=== PATIENT | female | born 1970 | race Caucasian/White ===

== ENCOUNTER 2025-07-31 17:23 | Inpatient (IN) | payer BC ==
[~2025-07-31] VITALS: Ht 172.7 cm; Wt 107.3 kg
[~2025-07-31 17:23] MED LIST: NATURAL IRON65 MG; NKHM; OMNICEF300 MG PO; VICODIN 5/500 505 MG PO; VITAMIN D3125 MCG PO
[2025-07-31 17:36] VITALS: BP 162/90
[2025-07-31 17:54] LABS: BASO # 0.0 10*3/uL (0.0-0.1); BASO % 0.2 % (0.0-1.0); EOS # 0.0 10*3/uL (0.0-0.4); EOS % 0.0 % (1.0-4.0); MEAN CELL VOLUME 90.2 fl (81.0-99.0); MEAN CORPUSCULAR HGB 30.3 pg (27.0-31.0); MEAN PLATELET VOLUME 9.8 fl (9.6-12.3); MONO # 0.5 10*3/uL (0.1-1.0); MONO % 3.9 % (3.0-9.0); NEUT # 11.1 10*3/uL (2.3-7.9); NEUT % 84.6 % (47.0-73.0); NUCLEATED RED BLOOD CELL 0.0 % (0.0-0.0); NUCLEATED RED BLOOD CELL 0.0 10*3/uL (0.0-0.0); PLATELET COUNT AUTOMATED 306 10*3/uL (130-400); RED CELL DISTRI WIDTH 12.5 % (0-14.5)
[2025-07-31 18:12] LABS: BUN 9 mg/dl (9-23); SGPT/ALT 29 U/L (5-49)
[2025-07-31 18:49] LABS: BILIRUBIN Negative (Negative); BLOOD Trace-Lysed (Negative); CLARITY Turbid (Clear); COLOR Dark Yellow (Yellow); KETONE Trace (Negative); LEUKO ESTERASE 2+ (Negative); NITRITE Negative (Negative); PH 5.5 (4.5-8.0); SPECIFIC GRAVITY 1.025 (1.001-1.030); UROBILINOGEN 1.0 E.U./dl (0.0-1.0)
[2025-07-31] MEDS ORDERED: Ondansetron Hydrochloride 4 MG/2 ML VIAL IV ONE (19:00)
[2025-07-31 19:13] LABS: BACTERIA 3+
[2025-07-31] MEDS ORDERED: SODIUM CHLORIDE 0.9% 1,000 ML IV SCH ×2 (19:20→23:05)
[2025-07-31] MEDS ORDERED: IOHEXOL 350 MG/ML 100 ML VIAL IV ONE ×2 (19:55→20:31)
[2025-07-31] MEDS ORDERED: SODIUM CHLORIDE 0.9% 100 ML BAG IV ONE (19:55)
[2025-07-31] MEDS ORDERED: SODIUM CHLORIDE 0.9% 100 ML IV ONE (20:30)
[2025-07-31 22:00] VITALS: BP 131/76
[2025-07-31] MEDS ORDERED: BISACODYL 10 MG SUPP R PRN (22:50)
[2025-07-31] MEDS ORDERED: ACETAMINOPHEN 325 MG TAB PO PRN (22:50)
[2025-07-31] MEDS ORDERED: Ondansetron Hydrochloride 4 MG/2 ML VIAL IV PRN (22:50)
[2025-07-31] MEDS ORDERED: Acetaminophen/Hydrocodone 5 MG/325 MG TABLET PO PRN (22:50)
[2025-07-31] MEDS ORDERED: ACETAMINOPHEN 650 MG SUPP R PRN (22:50)
[2025-07-31] MEDS ORDERED: BISACODYL 5 MG TAB PO PRN (22:50)
[2025-08-01 03:30] VITALS: BP 126/62
[2025-08-01 06:46] LABS: ACT PARTIAL THROMBO TIME 25.9 SECONDS (20.0-32.1)
[2025-08-01 06:48] LABS: BASO # 0.0 10*3/uL (0.0-0.1); BASO % 0.3 % (0.0-1.0); EOS # 0.0 10*3/uL (0.0-0.4); EOS % 0.2 % (1.0-4.0); MEAN CELL VOLUME 92.4 fl (81.0-99.0); MEAN CORPUSCULAR HGB 30.2 pg (27.0-31.0); MEAN PLATELET VOLUME 10.3 fl (9.6-12.3); MONO # 0.6 10*3/uL (0.1-1.0); MONO % 5.3 % (3.0-9.0); NEUT # 7.5 10*3/uL (2.3-7.9); NEUT % 71.5 % (47.0-73.0); NUCLEATED RED BLOOD CELL 0.0 % (0.0-0.0); NUCLEATED RED BLOOD CELL 0.0 10*3/uL (0.0-0.0); PLATELET COUNT AUTOMATED 280 10*3/uL (130-400); RED CELL DISTRI WIDTH 12.9 % (0-14.5)
[2025-08-01 06:58] LABS: BUN 6 mg/dl (9-23); FREE T4 1.16 ng/dl (0.89-1.76); LDL CHOLESTEROL 115 mg/dL (9-159); SGPT/ALT 24 U/L (5-49)
[2025-08-01 07:31] LABS: VITAMIN D, 25-HYDROXY 17.4 ng/mL (30-100)
[2025-08-01 08:00] VITALS: BP 146/77
[2025-08-01] MEDS ORDERED: diazePAM 5 MG TAB PO ONE (09:55)
[2025-08-01] MEDS ORDERED: Cholecalciferol 5,000 IU CAP (125 MCG) PO SCH (10:00)
[2025-08-01 12:00] VITALS: BP 137/64
[2025-08-01 16:00] VITALS: BP 124/59
[2025-08-01] MEDS ORDERED: diazePAM 5 MG TAB PO PRN (16:25)
[2025-08-01 20:00] VITALS: BP 129/61
[2025-08-02] VITALS: BP 125/67
[2025-08-02 06:07] LABS: BUN 7 mg/dl (9-23)
[2025-08-02 06:22] LABS: BASO # 0.1 10*3/uL (0.0-0.1); BASO % 0.5 % (0.0-1.0); EOS # 0.1 10*3/uL (0.0-0.4); EOS % 0.7 % (1.0-4.0); MEAN CELL VOLUME 92.3 fl (81.0-99.0); MEAN CORPUSCULAR HGB 30.2 pg (27.0-31.0); MEAN PLATELET VOLUME 10.4 fl (9.6-12.3); MONO # 0.7 10*3/uL (0.1-1.0); MONO % 6.5 % (3.0-9.0); NEUT # 6.5 10*3/uL (2.3-7.9); NEUT % 63.7 % (47.0-73.0); NUCLEATED RED BLOOD CELL 0.0 % (0.0-0.0); NUCLEATED RED BLOOD CELL 0.0 10*3/uL (0.0-0.0); PLATELET COUNT AUTOMATED 283 10*3/uL (130-400); RED CELL DISTRI WIDTH 12.8 % (0-14.5)
[2025-08-02 08:00] VITALS: BP 113/50
[2025-08-02] MEDS ORDERED: CEPHALEXIN500 M1 PO (10:26)
[2025-08-02] MEDS ORDERED: VITAMIN D3125 MC1 PO (10:26)
[2025-08-02] MEDS ORDERED: MECLIZINE HCL25 M2 PO (10:26)
[2025-08-02 12:00] VITALS: BP 125/80
== END 2025-08-02 15:14 | disposition home or self-care (01) | DRG 872 ==
LOC: ED 17:23 → EDHOLD 21:16 → 5E 21:16
PROVIDERS: Internal Medicine; Nurse Practitioner Family; Student in an Organized Health Care Education/Training Program; ADMIT Internal Medicine; ATTEND Internal Medicine
DX: A41.9 Sepsis, unspecified organism (principal); N30.00 Acute cystitis without hematuria; G90.9 Disorder of the autonomic nervous system, unspecified; H81.10 Benign paroxysmal vertigo, unspecified ear; Z20.822 Contact with and (suspected) exposure to COVID-19; I10 Essential (primary) hypertension; E87.8 Other disorders of electrolyte and fluid balance, not elsewhere classified; R73.9 Hyperglycemia, unspecified; E55.9 Vitamin D deficiency, unspecified; R29.810 Facial weakness; Z08 Encounter for follow-up examination after completed treatment for malignant neoplasm; Z85.3 Personal history of malignant neoplasm of breast; Z90.11 Acquired absence of right breast and nipple; Z82.49 Family history of ischemic heart disease and other diseases of the circulatory system; Z80.0 Family history of malignant neoplasm of digestive organs; Z88.8 Allergy status to other drugs, medicaments and biological substances; Z79.899 Other long term (current) drug therapy; Z79.01 Long term (current) use of anticoagulants; Z79.2 Long term (current) use of antibiotics